=== PATIENT | female | born 1990 | race Caucasian/White ===

== ENCOUNTER → 2016-08-09 | Day surgery (SDC) | payer BC ==
[~2016-08-09] MED LIST: CYCL5TAB PO; LACTATED RINGER'S 1,000 ML BAG IV ONE; NAPR500 PO; PROPOFOL 500 MG/50 ML BTL IV ONE; TYLE3 PO
--- NOTE | 2016-08-09 10:06 | GIPROC ---
[facility] [address] [place], [address] EGD PROCEDURE REPORT EXAM DATE: 08/09/2016 PATIENT NAME: Aileen Key MR #: [id number] BIRTHDATE: 1990 ATTENDING: Anam Wiley MD ORDER #: [id number] FINANCIAL REPORTING ANALYST: none STATUS: outpatient INDICATIONS: The patient is a 25 yr old female here for an EGD due to heartburn PROCEDURE PERFORMED: EGD w/ biopsy MEDICATIONS: None and Per Anesthesia. TOPICAL ANESTHETIC: none CONSENT: The patient understands the risks and benefits of the procedure and understands that these risks include, but are not limited to: sedation, allergic reaction, infection, perforation and/or bleeding. Alternative means of evaluation and treatment include, among others: physical exam, x-rays, and/or surgical intervention. The patient elects to proceed with this endoscopic procedure. medical equipment was checked for proper function. Hand hygiene and appropriate measures for infection prevention was taken. After the risks, benefits and alternatives of the procedure were thoroughly explained, Informed consent was verified, confirmed and timeout was successfully executed by the treatment team. The patient was anesthetized and the EC-[id number] ([id number]) endoscope was introduced through the mouth and advanced to the second portion of the duodenum. Retroflexed views revealed no abnormalities The gastroscope was then slowly withdrawn and removed. Stomach: bile reflux, no evidence of gastritis, no esophagitis. ADVERSE EVENTS: There were no complications. IMPRESSIONS: Retroflexed views revealed no abnormalities Bile reflux RECOMMENDATIONS: Await biopsy results. Biopsy results will not be ready for 7-10 days. If you don't hear from us in two weeks, call our office for biopsy results. start PPIs if symptomatic PATIENT CONDITION: fair DISPOSITION: Home REPEAT EXAM: NONE Anam Wiley MD eSigned: Anam Wiley MD 08/09/2016 10:06 AM cc: Nahun Gould M.D.
== END | disposition home or self-care (01) ==
LOC: ESDC 07:51
PROVIDERS: ATTEND Surgery
DX: R12 Heartburn (principal)
CPT/HCPCS: 00740; 43239; 88305; 88312; J3010; J7120

== ENCOUNTER 2016-10-10 10:29 | Inpatient (IN) | payer BC ==
[~2016-10-10] VITALS: Ht 157.5 cm; Wt 116.4 kg
[~2016-10-10 10:29] MED LIST changes: -LACTATED RINGER'S 1,000 ML BAG IV ONE; -PROPOFOL 500 MG/50 ML BTL IV ONE
[2016-10-12] MEDS ORDERED: BENA25CA4 PO (11:36)
[2016-10-12] MEDS ORDERED: IBUP200C PO (11:36)
[2016-10-12] MEDS ORDERED: VENTAER INH (11:39)
[2016-10-15] MEDS ORDERED: metroNIDAZOLE 500 MG INJ 100 ML IV SCH (05:45)
[2016-10-15] MEDS ORDERED: INSULIN HUMAN REGULAR 1,000 UNITS/10 ML VIAL SQ PRN (05:45)
[2016-10-15] MEDS ORDERED: LACTATED RINGER'S 1000 ML IV PRN (05:45)
[2016-10-15] MEDS ORDERED: SCOPOLAMINE 1.5 MG PATCH T-DERMAL SCH (05:45)
[2016-10-15] MEDS ORDERED: ONDANSETRON HCL 4 MG/2 ML VIAL IV PUSH SCH (05:45)
[2016-10-15] MEDS ORDERED: SODIUM CHLORID 0.9% 500 ML IV PRN (05:45)
[2016-10-15] MEDS ORDERED: ceFAZolin 3,000 MG/NS 100 ML (if >120 kg) IV SCH ×2 (05:45)
[2016-10-15] MEDS ORDERED: METOPROLOL TARTRATE 25 MG TAB PO PRN (05:45)
[2016-10-15] MEDS ORDERED: CHLORHEXIDINE GLUCONATE 2 % 1 PACK (2 CLOTHS) TOPICAL PRN (05:45)
[2016-10-15] MEDS ORDERED: ACETAMINOPHEN 1000 MG/100 ML VIAL IV SCH (05:45)
[2016-10-15] MEDS ORDERED: POVIDONE IODINE 5% (ANTISEPSIS KIT) 4 APPLICATIONS EACH NARE PRN (05:45)
[2016-10-15] MEDS ORDERED: APREPITANT 40 MG CAP PO SCH (05:45)
[2016-10-15 05:54] VITALS: BP 132/87; PULSE 96; RESP 16; TEMP 99.2; O2SAT 97
[2016-10-15] MEDS ORDERED: MIDAZOLAM HCL 2 MG/2 ML VIAL ONE (07:04)
[2016-10-15] MEDS ORDERED: FAMOTIDINE 20 MG/2 ML VIAL ONE (07:04)
[2016-10-15] MEDS ORDERED: DEXAMETHASONE SOD PHOS 4 MG/ML VIAL ONE (07:04)
[2016-10-15] MEDS ORDERED: ceFAZolin 2 GM PREMIX 50 ML ONE (07:34)
[2016-10-15] MEDS ORDERED: BUPIVACAINE/EPINEPHRINE 0.25% 50 ML VIAL INFIL ONE (07:34)
[2016-10-15] MEDS ORDERED: METHYLENE BLUE 100 MG/10 ML VIAL NG ONE (07:51)
[2016-10-15] MEDS ORDERED: diphenhydrAMINE HCL ELIXIR 12.5 MG/5 ML CUP PO PRN (08:30)
[2016-10-15] MEDS ORDERED: ACETAMINOPHEN 325MG/HYDROcodone 7.5MG/15ML UDC PO PRN (08:30)
[2016-10-15] MEDS ORDERED: SODIUM CHLORIDE 0.9% FLUSH 10 ML FLUSH IV FLUSH PRN (08:30)
[2016-10-15] MEDS ORDERED: diphenhydrAMINE HCL 50 MG/ML VIAL IV PRN (08:30)
[2016-10-15] MEDS ORDERED: ENALAPRILAT 1.25 MG/ML VIAL IV PUSH PRN (08:30)
[2016-10-15] MEDS ORDERED: Post-op Orders (for Pharmacy) MISC OTHER ONE (08:30)
[2016-10-15] MEDS ORDERED: fentaNYL CITRATE 250 MCG/5 ML AMP ONE (08:53)
[2016-10-15] MEDS ORDERED: MORPHINE SULFATE 4 MG/ML INJ ONE (08:54)
[2016-10-15] MEDS ORDERED: *morphine SULFATE 8 MG/ML PERIprocedure ONLY ONE ×3 (08:56→10:31)
--- NOTE | 2016-10-15 08:57 | MP ---
cc: NAHUN GOULD DATE OF SURGERY: 10/15/2016 DATE OF : 1990 PREOPERATIVE DIAGNOSIS Morbid obesity with BMI of 47. POSTOPERATIVE DIAGNOSIS Morbid obesity with BMI of 47. PROCEDURE Laparoscopic vertical sleeve gastrectomy over a 36-Yoruba bougie. SURGEON Nahun Gould ANESTHESIA General endotracheal. ESTIMATED BLOOD LOSS Scant. FINDINGS Fatty liver. SPECIMEN None. COMPLICATIONS None. DETAILS OF PROCEDURE The patient was brought to the operating room and placed on the operating table in the supine position. Bilateral sequential inflation devices were placed on the lower extremities. General anesthesia was instituted. Antibiotics were initiated. The abdomen was prepped and draped sterilely. A point 15 cm distal to the xiphoid in the midline was anesthetized with 0.25% Marcaine with epinephrine. A skin incision was made. A 5 mm OptiView port was placed under direct vision and a pneumoperitoneum created. Under direct vision three 5 mm left upper quadrant, one 15 mm right upper quadrant and one 5 mm right upper quadrant ports were placed. Prior to placement of all ports the skin and peritoneum were anesthetized with 0.25% Marcaine with epinephrine. The patient was placed in reverse Trendelenburg position left side up. A Klarissa-Flex retractor was placed. The left lobe of the liver was retracted. The vasculature along the greater curvature of the stomach was using a Harmonic scalpel starting a distance 5 cm proximal to the pylorus and carried towards the angle of His. The angle of His was taken down bluntly. Posterior ligamentous attachments were sharply . A 36-Yoruba ViSiGi bougie was placed at the start of the case and placed on suction. Division of the stomach started 5 cm proximal to the pylorus and carried towards the angle of His to completely excise approximately 80% of the stomach. This was performed using an [place] Flex stapler at the pylorus. The first firing was with a black load, followed by a green load and four gold loads. All staple loads were reinforced with SeamGuard. A distance of 2 cm was left from the angle incisura and the staple line and a distance of 1 cm left from the GE junction and the staple line. The pylorus was then occluded, methylene blue tinged saline was instilled. There was no evidence of extravasation. The gastrocolic ligament was then sutured to the posterior leaflet of the SeamGuard using 2-0 Vicryl suture in a running manner. Bleeding points were controlled with Evicel. The excised stomach was removed from the peritoneal cavity through the 15 mm port site in an Endopouch. The fascia at the 15 mm port site was approximated with 0 Vicryl suture. The CO2 was then released. All ports were removed. All skin incisions were closed with 4-0 Monocryl. The abdominal wall was cleaned and a sterile dressing placed. The patient was awakened and taken to the recovery room. MD DANIKA Wills/BT /8:36 AM /8:52 AM
[2016-10-15] MEDS: SODIUM CHLORIDE 0.9% FLUSH 10 ML FLUSH IV FLUSH SCH ×2 (09:00→21:00)
[2016-10-15] MEDS: D5-1/2 NS + KCL 20 MEQ INJ 1,000 ML IV SCH ×2 (09:00→17:38)
[2016-10-15] MEDS: METOCLOPRAMIDE HCL 10 MG/2 ML VIAL IV PUSH SCH ×3 (09:30→21:37)
[2016-10-15] MEDS ORDERED: DO NOT ADM ANY ANTICOAGULANT DRUGS PRN (09:30)
[2016-10-15] MEDS: HYDROmorphone HCL PF 1 MG/ML VIAL IV PUSH PRN (11:36)
[2016-10-15] MEDS: RESP: ALBUTEROL 2.5 MG/3 ML NEB (SCH) INH ×3 (11:37→19:42)
[2016-10-15] MEDS ORDERED: PROPOFOL 200 MG/20 ML AMP IV ONE (12:00)
[2016-10-15] MEDS ORDERED: ONDANSETRON HCL 4 MG/2 ML VIAL IV PUSH ONE (12:00)
[2016-10-15] MEDS ORDERED: NEOSTIGMINE 3 MG/3 ML SYR IV ONE (12:00)
[2016-10-15] MEDS ORDERED: ePHEDrine/NS 25 MG/5 ML SYR IV ONE (12:00)
[2016-10-15] MEDS ORDERED: PHENYLEPH/NS 1000 MCG/10 ML SYR IV ONE (12:00)
[2016-10-15] MEDS ORDERED: LACTATED RINGER'S 1000 ML INJ 1,000 ML IV ONE (12:00)
[2016-10-15] MEDS: PANTOPRAZOLE SOD 40 MG DELAYED RELEASE TAB PO SCH (12:15)
[2016-10-15 13:00] VITALS: BP 109/59; PULSE 83; RESP 16; TEMP 95.7; O2SAT 95
[2016-10-15] MEDS: ACETAMINOPHEN 325MG/HYDROcodone 7.5MG/15ML UDC PO PRN ×2 (13:33→21:36)
[2016-10-15] MEDS: ENOXAPARIN SODIUM 40 MG/0.4 ML SYRINGE SQ SCH (13:35)
[2016-10-15] MEDS: metroNIDAZOLE 500 MG INJ 100 ML IV SCH ×2 (14:08→21:38)
[2016-10-15 16:00] VITALS: BP 105/58; PULSE 80; RESP 17; TEMP 96.1; O2SAT 95
[2016-10-15 16:04] VITALS: O2SAT 95
[2016-10-15] MEDS: ONDANSETRON HCL 4 MG/2 ML VIAL IV PRN (17:41)
[2016-10-15 20:00] VITALS: BP 112/55; PULSE 83; RESP 20; TEMP 96; O2SAT 95
[2016-10-16] VITALS (10 sets, daily range): BP systolic 103–135; BP diastolic 55–74; PULSE 57–77; RESP 16–20; TEMP 97.5–98.8; O2SAT 95–99
[2016-10-16] MEDS: RESP: ALBUTEROL 2.5 MG/3 ML NEB (SCH) INH ×6 (00:30→21:46)
[2016-10-16] MEDS: D5-1/2 NS + KCL 20 MEQ INJ 1,000 ML IV SCH ×4 (03:54→23:09)
[2016-10-16] MEDS: METOCLOPRAMIDE HCL 10 MG/2 ML VIAL IV PUSH SCH (03:56)
[2016-10-16] MEDS: ACETAMINOPHEN 325MG/HYDROcodone 7.5MG/15ML UDC PO PRN ×3 (03:57→19:12)
[2016-10-16] MEDS: metroNIDAZOLE 500 MG INJ 100 ML IV SCH (06:00)
[2016-10-16 07:02] LABS: AUTOMATED NEUTROPHIL # 7.2 TH/MM3 (1.8-7.7); BASOPHIL % 0.2 % (0.0-2.0); EOSINOPHIL % 0.1 % (0.0-4.0); HEMATOCRIT 31.4 % (35.0-46.0); HEMO FLAGS DIFF FINAL; LYMPH % 14.8 % (9.0-44.0); LYMPHOCYTE # 1.4 TH/MM3 (1.0-4.8); MEAN CELL VOLUME 76.4 FL (80.0-100.0); MEAN CORPUSCULAR HEMOGLOBIN 24.7 PG (27.0-34.0); MEAN CORPUSCULAR HGB CONC 32.3 % (32.0-36.0); MONO % 6.9 % (0.0-8.0); PLATELET COUNT 229 TH/MM3 (150-450); RED BLOOD COUNT 4.11 MIL/MM3 (4.00-5.30); RED CELL DISTRIBUTION WIDTH 16.9 % (11.6-17.2); WHITE BLOOD COUNT 9.3 TH/MM3 (4.0-11.0)
[2016-10-16] MEDS: ONDANSETRON HCL 4 MG/2 ML VIAL IV PRN ×2 (07:12→20:36)
[2016-10-16 07:22] LABS: BICARBONATE 22.4 MEQ/L (21.0-32.0); MAGNESIUM 2.2 MG/DL (1.5-2.5); POTASSIUM 3.5 MEQ/L (3.5-5.1)
[2016-10-16] MEDS: HYDROmorphone HCL PF 1 MG/ML VIAL IV PUSH PRN ×3 (08:44→20:36)
[2016-10-16] MEDS: PANTOPRAZOLE SOD 40 MG DELAYED RELEASE TAB PO SCH (08:46)
[2016-10-16] MEDS: SODIUM CHLORIDE 0.9% FLUSH 10 ML FLUSH IV FLUSH SCH ×2 (08:46→20:36)
[2016-10-16] MEDS ORDERED: METOCLOPRAMIDE HCL 10 MG/2 ML VIAL IV PUSH PRN (09:00)
[2016-10-16] MEDS ORDERED: PROMETHAZINE HCL SYRUP 6.25 MG/5 ML CUP PO ONE (09:00)
--- NOTE | 2016-10-16 09:19 | HHI.PR ---
Subjective Subjective Notes 26yo female POD#1 VSG. Sitting up in chair complaining of nausea and vomiting despite Zofran and Reglan. Also complains of epigastric burning with drinking. Only tolerating 30ml of fluids every half hour. Objective Vitals/I&O Vital Signs Date Time Temp Pulse Resp B/P Pulse Ox O2 Delivery O2 Flow Rate FiO2 10/16/16 08:00 98.4 69 16 111/58 96 10/16/16 07:42 21 10/15/16 12:30 Room Air 10/15/16 10:30 2 Labs Laboratory Tests Test 10/16/16 06:22 White Blood Count 9.3 Red Blood Count 4.11 Hemoglobin 10.1 Hematocrit 31.4 Mean Corpuscular Volume 76.4 Mean Corpuscular Hemoglobin 24.7 Mean Corpuscular Hemoglobin 32.3 Concent Red Cell Distribution Width 16.9 Platelet Count 229 Mean Platelet Volume 8.0 Neutrophils (%) (Auto) 78.0 Lymphocytes (%) (Auto) 14.8 Monocytes (%) (Auto) 6.9 Eosinophils (%) (Auto) 0.1 Basophils (%) (Auto) 0.2 Neutrophils # (Auto) 7.2 Lymphocytes # (Auto) 1.4 Monocytes # (Auto) 0.6 Eosinophils # (Auto) 0.0 Basophils # (Auto) 0.0 CBC Comment DIFF FINAL Differential Comment Sodium Level 141 Potassium Level 3.5 Chloride Level 109 Carbon Dioxide Level 22.4 Anion Gap 10 Blood Urea Nitrogen 5 Creatinine 0.70 Estimat Glomerular Filtration 100 Rate Random Glucose 126 Calcium Level 8.4 Magnesium Level 2.2 Cardiovascular: Regular Lungs: Clear Abdomen: Post-op tenderness Extremities: Perfused Wound Wound : Wound Location: Abdomen Appearance: Clean & Dry Dressing: Dry A/P Assessment and Plan Add Phenergan for nausea Add Carafate for epigastric pain Continue to increase PO fluids as tolerated Continue with frequent ambulation Discharge Planning Depending on course she will go home either later today or tomorrow Fe Vickers Oct 16, 2016 09:19
[2016-10-16] MEDS ORDERED: SUCR1S PO (11:55)
[2016-10-16] MEDS: SUCRALFATE 1 GM/10 ML CUP PO SCH ×3 (11:56→20:40)
[2016-10-16] MEDS: ENOXAPARIN SODIUM 40 MG/0.4 ML SYRINGE SQ SCH (12:54)
[2016-10-16] MEDS: PROMETHAZINE HCL SYRUP 6.25 MG/5 ML CUP PO PRN (16:13)
[2016-10-17] VITALS (7 sets, daily range): BP systolic 109–140; BP diastolic 55–74; PULSE 63–80; RESP 16–19; TEMP 97.5–98.9; O2SAT 95–98
[2016-10-17] MEDS: HYDROmorphone HCL PF 1 MG/ML VIAL IV PRN ×3 (01:03→12:02)
[2016-10-17] MEDS: RESP: ALBUTEROL 2.5 MG/3 ML NEB (SCH) INH ×3 (04:00→09:56)
[2016-10-17] MEDS: SUCRALFATE 1 GM/10 ML CUP PO SCH ×4 (05:58→21:09)
[2016-10-17] MEDS: PANTOPRAZOLE SOD 40 MG DELAYED RELEASE TAB PO SCH (07:56)
[2016-10-17] MEDS: D5-1/2 NS + KCL 20 MEQ INJ 1,000 ML IV SCH ×2 (07:56→16:57)
[2016-10-17] MEDS: SODIUM CHLORIDE 0.9% FLUSH 10 ML FLUSH IV FLUSH SCH ×2 (07:56→21:00)
[2016-10-17] MEDS: PROMETHAZINE HCL SYRUP 6.25 MG/5 ML CUP PO PRN ×2 (08:06→17:05)
[2016-10-17] MEDS: ENOXAPARIN SODIUM 40 MG/0.4 ML SYRINGE SQ SCH (12:41)
--- NOTE | 2016-10-17 13:12 | HHI.PR ---
Subjective Subjective Notes POD#2 VSG. Walking the halls. Still having issues with nausea despite medication though she states the Phenergan has helped somewhat. Only tolerating 20 ml or oral fluids every 30 min. Taking hydromorphone as opposed to hydrocodone due to nausea. As per patient she is naive to narcotics. Objective Vitals/I&O Vital Signs Date Time Temp Pulse Resp B/P Pulse Ox O2 Delivery O2 Flow Rate FiO2 10/17/16 12:00 97.5 63 18 118/59 98 10/17/16 09:58 21 10/15/16 12:30 Room Air 10/15/16 10:30 2 Cardiovascular: Regular Lungs: Clear Abdomen: Post-op tenderness Extremities: Perfused Wound Wound : Wound Location: Abdomen Appearance: Clean & Dry A/P Assessment and Plan Will try Ofirmev for pain to decrease narcotic use as this may be exacerbating the issue, continue with Phenergan Continue to increase PO fluids as tolerated, try different flavors and temperatures to see what is better tolerated Continue with frequent ambulation Discharge Planning Depending on course she will go home either later today or tomorrow. Would like to get her home today if tolerating Fe Vickers Oct 17, 2016 13:12
[2016-10-17] MEDS ORDERED: HYOSCYAMINE SOLN 0.125 MG/ML 15 ML BTL PO PRN (17:00)
[2016-10-17] MEDS: ACETAMINOPHEN 1000 MG/100 ML VIAL IV SCH ×2 (18:11→23:14)
[2016-10-18] VITALS: BP 123/65; PULSE 72; RESP 18; TEMP 97.8; O2SAT 98
[2016-10-18] MEDS: D5-1/2 NS + KCL 20 MEQ INJ 1,000 ML IV SCH ×2 (01:00→09:00)
[2016-10-18] MEDS: ACETAMINOPHEN 1000 MG/100 ML VIAL IV SCH ×2 (05:26→11:30)
[2016-10-18] MEDS: SUCRALFATE 1 GM/10 ML CUP PO SCH ×2 (05:28→11:31)
[2016-10-18] MEDS: PROMETHAZINE HCL SYRUP 6.25 MG/5 ML CUP PO PRN ×2 (05:28→11:31)
[2016-10-18 08:00] VITALS: BP 115/61; PULSE 70; RESP 16; TEMP 98.1; O2SAT 96
[2016-10-18] MEDS: SODIUM CHLORIDE 0.9% FLUSH 10 ML FLUSH IV FLUSH SCH (09:00)
[2016-10-18] MEDS: PANTOPRAZOLE SOD 40 MG DELAYED RELEASE TAB PO SCH (09:19)
--- NOTE | 2016-10-18 12:43 | HHI.DS ---
Discharge Summary Admission Date Oct 15, 2016 at 05:21 Discharge Date: Oct 18, 2016 Admitting Diagnosis Morbid obesity Procedures Laparoscopic Vertical Sleeve Gastrectomy Brief History 26yo female with morbid obesity presents for elective vertical sleeve gastrectomy CBC/BMP: 10/16/16 0622 10/16/16 0622 Significant Findings Laboratory Tests Test 10/16/16 06:22 Hemoglobin 10.1 GM/DL (11.6-15.3) Hematocrit 31.4 % (35.0-46.0) Mean Corpuscular Volume 76.4 FL (80.0-100.0) Mean Corpuscular Hemoglobin 24.7 PG (27.0-34.0) Neutrophils (%) (Auto) 78.0 % (16.0-70.0) Chloride Level 109 MEQ/L (98-107) Blood Urea Nitrogen 5 MG/DL (7-18) Random Glucose 126 MG/DL (74-106) Calcium Level 8.4 MG/DL (8.5-10.1) PE at Discharge Cardiac: RRR Lungs: clear to auscultation Abdomen: post-op tenderness, now tolerating 60ml of fluids every half hour Extremities: perfused Hospital Course The procedure was performed without complication. Her hospital course was complicated by prolonged nausea that eventually improved with medications Pt Condition on Discharge: Stable Discharge Disposition: Discharge Home Discharge Instructions DIET: Follow Instructions for: Bariatric Surgery Diet Activities you can perform: Shower Only-No Bath Activities to Avoid: Strenuous Activity Follow up Referrals: [facility] Nahun Gould MD New Medications: Sucralfate Liq (Sucralfate Liq) 1 Gm/10 Ml Jacinda 1 GM PO ACHS Nausea #1 BOTTLE Continued Medications: Albuterol 18 GM Inh (Ventolin Hfa 18 GM Inh) 90 Mcg/Act Aer Unknown Dose INH Q4-6H PRN SHORTNESS OF BREATH #1 Ref 0 INHALER Diphenhydramine HCl (Benadryl Allergy) 25 Mg Cap 1 CAP PO DAILY PRN ALLERGIES Discontinued Medications: Ibuprofen (Ibuprofen) 200 Mg Cap 200 MG PO Q4H PRN PAIN SCALE 1 TO 10 Ref 0 CAP Fe Vickers Oct 18, 2016 12:43
== END 2016-10-18 11:45 | disposition home or self-care (01) | DRG 621 ==
LOC: HSDI 10-15 05:21 → N07A 10-15 12:44
PROVIDERS: ADMIT Surgery; ATTEND Surgery
PROC: 0DB64Z3 Excision of Stomach, Percutaneous Endoscopic Approach, Vertical (ICD-10-PCS; principal; 2016-10-15 07:08)
DX: E66.01 Morbid (severe) obesity due to excess calories (principal); Z68.42 Body mass index [BMI] 45.0-49.9, adult; K76.0 Fatty (change of) liver, not elsewhere classified; J45.909 Unspecified asthma, uncomplicated; R11.0 Nausea
CPT/HCPCS: 80048; 83735; 85025; 94150; 94640; 94664; J0131; J0690; J1100; J1170; J1650; J2250; J2270; J2370; J2405; J2710; J2765; J3010; J3480; J7120; J7613; J8501